=== PATIENT | female | born 1955 | race Caucasian/White ===

== ENCOUNTER 2018-02-10 11:46 | Inpatient (IN) | payer MEDICARE, OTHER ==
[~2018-02-10] VITALS: Ht 170.2 cm; Wt 62.0 kg
[~2018-02-10 11:46] MED LIST: ASPI-1264 PO; BENZ-16 PO; CARI350T PO; CYCL-1 PO; DESV50TA3 PO; ESTR1TAB19 PO; HYDR2TAB7 PO; METO-292 PO; METO25TA6 PO; NAPR250T4 PO; OMEP20CA4 PO; PRAV40TA PO
[2018-02-10 12:10] LABS: BASOPHILS % (AUTO) 0.5 % (0-1); EOSINOPHILS # (AUTO) 0.1 X10'3 (0-0.9); EOSINOPHILS % (AUTO) 0.9 % (0-6); HEMATOCRIT 37.4 % (35.0-45.0); LYMPHOCYTES # (AUTO) 1.3 X10'3 (1.1-4.8); LYMPHOCYTES % (AUTO) 12.5 % (21-51); MEAN CORPUSCULAR HEMOGLOBIN 32.6 PG (27.0-31.0); MEAN CORPUSCULAR HGB CONC 34.8 % (33.0-36.5); MEAN CORPUSCULAR VOLUME 93.9 FL (78-98); MEAN PLATELET VOLUME 6.9 FL (7.4-10.4); MONOCYTES # (AUTO) 0.8 X10'3 (0-0.9); MONOCYTES % (AUTO) 7.9 % (2-12); NEUTROPHILS % (AUTO) 78.2 % (42-75); PLATELET COUNT 443 X10'3 (140-440); RED BLOOD COUNT 3.98 X10'6 (4.20-5.60); RED CELL DISTRIBUTION WIDTH 13.2 % (11.5-14.5); WHITE BLOOD COUNT 10.2 X10'3 (4.5-11.0)
[2018-02-10 12:25] LABS: ALANINE AMINOTRANSFERASE 26 U/L (12-78); ALBUMIN 3.2 G/DL (3.4-5.0); ALBUMIN/GLOBULIN RATIO 0.7 (1.1-1.5); ALKALINE PHOSPHATASE 109 IU/L (46-116); ANION GAP 12 (8-16); ASPARTATE AMINO TRANSFERASE 20 U/L (10-37); BILIRUBIN,TOTAL 0.3 MG/DL (0.1-1.0); BLOOD UREA NITROGEN 13 MG/DL (7-18); BUN/CREATININE RATIO 14.8 (6.6-38.0); CALCIUM 9.7 MG/DL (8.5-10.1); CHLORIDE 100 MMOL/L (99-107); CREATININE 0.88 MG/DL (0.40-0.90); GLUCOSE 126 MG/DL (70-104); POTASSIUM 3.9 MMOL/L (3.5-5.1); SODIUM 138 MMOL/L (135-145); TOTAL CARBON DIOXIDE 25.7 MMOL/L (24-32); TOTAL PROTEIN 7.9 G/DL (6.4-8.2); eGFR 66 ML/MIN
[2018-02-10] MEDS ORDERED: normal saline 1000ML IV soln IVB ONE (13:00)
[2018-02-10] MEDS ORDERED: levoFLOXACIN-Levaquin 750MG/D5 150 ML IV STA (13:00)
[2018-02-10] MEDS ORDERED: oxyCODONE/APAP 10/325mg tablet PO ONE (13:10)
[2018-02-10 13:30] LABS: D-DIMER 1.22 MG/L FEU (0-0.50)
[2018-02-10] MEDS ORDERED: azithromycin/NS 500mg/250ml 250 ML IV ONE (13:50)
[2018-02-10] MEDS ORDERED: CefTRIAXone 2gm/D5W 50ml 50 ML IV ONE (13:50)
[2018-02-10] MEDS ORDERED: iohexol 350MG/ML 100ml bottle IV ONE (14:02)
[2018-02-10] MEDS ORDERED: magnesium hydroxide 30ml (MOM) UD suspension PO PRN (15:00)
[2018-02-10] MEDS ORDERED: mag hydrox/Alum hydrox/simeth 30ml oral suspension PO PRN (15:00)
[2018-02-10] MEDS ORDERED: acetaminophen 325mg tablet PO PRN (15:00)
[2018-02-10] MEDS ORDERED: HYDR-3965 PO (15:34)
[2018-02-10] MEDS: normal saline 1000ml 1,000 ML IV SCH ×2 (15:53→20:54)
[2018-02-10] MEDS ORDERED: benzonatate 100mg capsule PO SCH (16:24)
[2018-02-10 18:16] LABS: CLARITY,URINE CLEAR (Clear); COLOR,URINE STRAW (Yellow); GLUCOSE, URINE NEGATIVE (Neg); KETONES,URINE NEGATIVE (Neg); LEUKOCYTE ESTERASE ,URINE NEGATIVE (Neg); NITRITES, URINE NEGATIVE (Neg); OCCULT BLOOD,URINE MODERATE (Neg); PH,URINE 6.5 (4.8-8.0); PROTEIN,URINE NEGATIVE (Neg); UROBILINOGEN,URINE 0.2 E.U/dL (0.2-1.0)
[2018-02-10] MEDS ORDERED: oxyCODONE/APAP 5-325mg tablet PO PRN (18:20)
[2018-02-10 18:29] LABS: UA COLLECTION TYPE VOIDED
[2018-02-10 18:30] LABS: BACTERIA,URINE FEW /HPF (Neg); SQUAMOUS EPITHELIAL CELL,UR FEW /LPF (FEW); WBC,URINE 0-4 /HPF (0-4)
[2018-02-10] MEDS: ipratropium 0.5 MG/2.5ML nebule IH SCH ×2 (18:46→23:11)
[2018-02-10] MEDS: metoclopramide 10mg tablet PO PRN (19:35)
[2018-02-10 20:00] VITALS: BP 150/80
[2018-02-10] MEDS ORDERED: benzonatate 100mg capsule PO ONE (20:00)
[2018-02-10] MEDS: methylPREDNISolone sod succ/PF 40mg inj. IV SCH (20:52)
[2018-02-10] MEDS: clindamycin 600mg/D5W 50ml 50 ML IV SCH (20:52)
[2018-02-10] MEDS: heparin, porcine 5000 units/ml vial SQ SCH (20:53)
[2018-02-10] MEDS: HYDROmorphone 2mg tablet PO PRN (21:37)
[2018-02-10] MEDS ORDERED: ASPI-1264 PO (21:49)
[2018-02-10] MEDS ORDERED: ASPI-1265 PO (21:56)
[2018-02-10] MEDS ORDERED: CLON-529 PO (22:03)
[2018-02-10] MEDS ORDERED: LORA10TA7 PO (22:03)
[2018-02-10] MEDS ORDERED: BUPR150T8 PO (22:03)
[2018-02-10] MEDS ORDERED: OXYC-150 PO (22:03)
[2018-02-10] MEDS ORDERED: BACL10TA PO (22:03)
[2018-02-10 23:00] VITALS: BP 151/73
[2018-02-10] MEDS: oxyCODONE/APAP 10/325mg tablet PO PRN (23:33)
[2018-02-11] MEDS: HYDROmorphone 2mg tablet PO PRN ×6 (01:50→21:56)
[2018-02-11] MEDS: clindamycin 600mg/D5W 50ml 50 ML IV SCH ×4 (02:01→21:12)
[2018-02-11 02:31] LABS: BASOPHILS % (AUTO) 0.2 % (0-1); EOSINOPHILS # (AUTO) 0.1 X10'3 (0-0.9); EOSINOPHILS % (AUTO) 1.4 % (0-6); HEMATOCRIT 33.4 % (35.0-45.0); HEMOGLOBIN 11.5 g/dl (12.0-16.0); LYMPHOCYTES # (AUTO) 0.5 X10'3 (1.1-4.8); LYMPHOCYTES % (AUTO) 5.1 % (21-51); MEAN CORPUSCULAR HEMOGLOBIN 32.6 PG (27.0-31.0); MEAN CORPUSCULAR HGB CONC 34.4 % (33.0-36.5); MEAN CORPUSCULAR VOLUME 94.5 FL (78-98); MEAN PLATELET VOLUME 7.5 FL (7.4-10.4); MONOCYTES # (AUTO) 0.1 X10'3 (0-0.9); MONOCYTES % (AUTO) 1.3 % (2-12); NEUTROPHILS # (AUTO) 9.1 X10'3 (1.8-7.7); PLATELET COUNT 322 X10'3 (140-440); RED BLOOD COUNT 3.54 X10'6 (4.20-5.60); RED CELL DISTRIBUTION WIDTH 13.2 % (11.5-14.5); WHITE BLOOD COUNT 9.9 X10'3 (4.5-11.0)
[2018-02-11 02:48] LABS: ALBUMIN 2.6 G/DL (3.4-5.0); ANION GAP 9 (8-16); BLOOD UREA NITROGEN 10 MG/DL (7-18); BUN/CREATININE RATIO 13.3 (6.6-38.0); CALCIUM 8.9 MG/DL (8.5-10.1); CHLORIDE 104 MMOL/L (99-107); CREATININE 0.75 MG/DL (0.40-0.90); GLUCOSE 135 MG/DL (70-104); POTASSIUM 4.1 MMOL/L (3.5-5.1); SODIUM 139 MMOL/L (135-145); TOTAL CARBON DIOXIDE 26.2 MMOL/L (24-32); eGFR 79 ML/MIN
[2018-02-11] MEDS: ipratropium 0.5 MG/2.5ML nebule IH SCH ×6 (03:01→23:10)
[2018-02-11] MEDS: oxyCODONE/APAP 10/325mg tablet PO PRN ×5 (03:33→21:56)
[2018-02-11] MEDS ORDERED: zolpidem 5mg tablet PO PRN (04:10)
[2018-02-11] MEDS: ondansetron/PF 4mg/2ml inj IV PRN ×2 (04:56→16:03)
[2018-02-11] MEDS ORDERED: temazepam 15mg capsule PO PRN (05:00)
[2018-02-11 07:00] VITALS: BP 129/61
[2018-02-11] MEDS: normal saline 1000ml 1,000 ML IV SCH (07:48)
[2018-02-11] MEDS: heparin, porcine 5000 units/ml vial SQ SCH ×2 (07:49→21:10)
[2018-02-11] MEDS: methylPREDNISolone sod succ/PF 40mg inj. IV SCH ×2 (07:49→21:11)
[2018-02-11] MEDS ORDERED: levoFLOXACIN-Levaquin 750MG/D5 150 ML IV SCH (08:00)
[2018-02-11] MEDS: metoclopramide 10mg tablet PO PRN (08:03)
[2018-02-11] MEDS: benzonatate 100mg capsule PO PRN (08:03)
[2018-02-11] MEDS: nicotine 21mg patch - 24 hr TD SCH (14:10)
[2018-02-11] MEDS: baclofen 10mg tablet PO SCH ×2 (16:03→23:24)
[2018-02-11] MEDS ORDERED: LORazepam 2 mg/ml vial IV ONE (17:15)
[2018-02-11] MEDS ORDERED: ALPRAZolam 0.25mg tablet PO PRN (17:15)
[2018-02-11] MEDS: ALPRAZolam 0.25mg tablet PO PRN (17:36)
[2018-02-11] MEDS ORDERED: iohexol 300mg/ml 100ml inj. ONE (19:27)
[2018-02-11 20:00] VITALS: BP 127/66
[2018-02-11] MEDS: cloNIDine 0.1 mg tablet PO SCH (21:16)
[2018-02-11 23:00] VITALS: BP 120/69
[2018-02-12] MEDS: HYDROmorphone 2mg tablet PO PRN ×3 (01:36→11:00)
[2018-02-12] MEDS: clindamycin 600mg/D5W 50ml 50 ML IV SCH ×3 (01:37→13:24)
[2018-02-12] MEDS: oxyCODONE/APAP 10/325mg tablet PO PRN ×3 (02:16→13:34)
[2018-02-12] MEDS: ipratropium 0.5 MG/2.5ML nebule IH SCH ×4 (02:59→16:12)
[2018-02-12] MEDS ORDERED: bisacodyl 10mg suppository rectal RC PRN (05:25)
[2018-02-12 05:29] LABS: BASOPHILS % (AUTO) 0 % (0-1); EOSINOPHILS # (AUTO) 0.1 X10'3 (0-0.9); EOSINOPHILS % (AUTO) 0.7 % (0-6); HEMATOCRIT 32.2 % (35.0-45.0); HEMOGLOBIN 11.1 g/dl (12.0-16.0); LYMPHOCYTES # (AUTO) 0.6 X10'3 (1.1-4.8); LYMPHOCYTES % (AUTO) 5.2 % (21-51); MEAN CORPUSCULAR HEMOGLOBIN 32.6 PG (27.0-31.0); MEAN CORPUSCULAR HGB CONC 34.6 % (33.0-36.5); MEAN CORPUSCULAR VOLUME 94.3 FL (78-98); MEAN PLATELET VOLUME 7.2 FL (7.4-10.4); MONOCYTES # (AUTO) 0.3 X10'3 (0-0.9); MONOCYTES % (AUTO) 2.6 % (2-12); NEUTROPHILS # (AUTO) 10.7 X10'3 (1.8-7.7); NEUTROPHILS % (AUTO) 91.5 % (42-75); PLATELET COUNT 342 X10'3 (140-440); RED BLOOD COUNT 3.42 X10'6 (4.20-5.60); RED CELL DISTRIBUTION WIDTH 12.8 % (11.5-14.5); WHITE BLOOD COUNT 11.7 X10'3 (4.5-11.0)
[2018-02-12 05:57] LABS: ALBUMIN 2.6 G/DL (3.4-5.0); ANION GAP 8 (8-16); BLOOD UREA NITROGEN 12 MG/DL (7-18); BUN/CREATININE RATIO 17.1 (6.6-38.0); CALCIUM 9.2 MG/DL (8.5-10.1); CHLORIDE 103 MMOL/L (99-107); GLUCOSE 130 MG/DL (70-104); POTASSIUM 4.3 MMOL/L (3.5-5.1); SODIUM 138 MMOL/L (135-145); TOTAL CARBON DIOXIDE 27.5 MMOL/L (24-32); eGFR 85 ML/MIN
[2018-02-12] MEDS ORDERED: pantoprazole 40mg Tablet.DR PO SCH (07:30)
[2018-02-12 08:00] VITALS: BP 118/69
[2018-02-12] MEDS ORDERED: loratadine 10mg tablet PO SCH (08:00)
[2018-02-12] MEDS ORDERED: estradiol 1mg tablet PO SCH (08:00)
[2018-02-12] MEDS: cloNIDine 0.1 mg tablet PO SCH (08:00)
[2018-02-12] MEDS ORDERED: buPROPion SR 100mg tab PO SCH (08:00)
[2018-02-12] MEDS ORDERED: atorvastatin 10mg tablet PO SCH (08:00)
[2018-02-12] MEDS ORDERED: aspirin 81mg tab.chew PO SCH (08:00)
[2018-02-12] MEDS: baclofen 10mg tablet PO SCH (08:12)
[2018-02-12] MEDS: methylPREDNISolone sod succ/PF 40mg inj. IV SCH (08:13)
[2018-02-12] MEDS: LACTOSE-FREE FOOD 237ML (BOOST) PO SCH ×2 (08:13→13:19)
[2018-02-12] MEDS: nicotine 21mg patch - 24 hr TD SCH (08:15)
[2018-02-12] MEDS: heparin, porcine 5000 units/ml vial SQ SCH (08:16)
[2018-02-12] MEDS: benzonatate 100mg capsule PO PRN (08:21)
[2018-02-12] MEDS: ALPRAZolam 0.25mg tablet PO PRN (10:56)
[2018-02-12] MEDS: ondansetron/PF 4mg/2ml inj IV PRN (10:56)
[2018-02-12 12:00] VITALS: BP 114/58
[2018-02-12] MEDS ORDERED: AMOX-580 PO (12:05)
[2018-02-12] MEDS ORDERED: NICO-687 TD (12:05)
[2018-02-12] MEDS ORDERED: CLIN-5 PO (12:05)
[2018-02-12] MEDS ORDERED: ALBU8.5H8 INH (12:24)
[2018-02-12] MEDS ORDERED: NEBU-184 (12:24)
[2018-02-12] MEDS ORDERED: IPRA3AMP IH (12:24)
[2018-02-12] MEDS ORDERED: lactobacillus rhamnosus 10,000 MMU CELLS/CAPSULE PO SCH (20:00)
== END 2018-02-12 16:30 | disposition home or self-care (01) | DRG 180 ==
LOC: ER 11:47 → ED HOLD 14:56 → EDBEDREQ 16:48 → MED 3N 17:58
PROVIDERS: ADMIT Family Medicine; ATTEND Family Medicine
PROC: B3201ZZ Computerized Tomography (CT Scan) of Thoracic Aorta using Low Osmolar Contrast (ICD-10-PCS; principal; 2018-02-10)
PROC: CP2YYZZ Tomographic (Tomo) Nuclear Medicine Imaging of Musculoskeletal System, Other using Other Radionuclide (ICD-10-PCS; 2018-02-11)
DX: C34.91 Malignant neoplasm of unspecified part of right bronchus or lung (principal); J18.8 Other pneumonia, unspecified organism; E78.00 Pure hypercholesterolemia, unspecified; I25.10 Atherosclerotic heart disease of native coronary artery without angina pectoris; R09.02 Hypoxemia; M54.9 Dorsalgia, unspecified; F17.210 Nicotine dependence, cigarettes, uncomplicated; G89.29 Other chronic pain; I25.2 Old myocardial infarction; Z82.49 Family history of ischemic heart disease and other diseases of the circulatory system; Z90.710 Acquired absence of both cervix and uterus; Z88.2 Allergy status to sulfonamides; Z88.5 Allergy status to narcotic agent; Z90.49 Acquired absence of other specified parts of digestive tract; Z79.899 Other long term (current) drug therapy; Z79.82 Long term (current) use of aspirin
CPT/HCPCS: 36415; 70470; 71046; 71275; 76775; 78306; 80048; 80053; 81001; 83605; 84145; 84484; 85025; 85379; 87040; 87070; 93005; 93306; 94640; 94760; A9503; J0456; J0696; J1644; J1956; J2405; J2920; J3490; J7030; J8597; Q9967

== ENCOUNTER 2018-04-01 19:39 | Inpatient (IN) | payer MEDICARE, OTHER ==
[~2018-04-01] VITALS: Ht 167.6 cm; Wt 58.8 kg
[~2018-04-01 19:39] MED LIST changes: +ALBU8.5H8 INH; -ASPI-1264 PO; +ASPI-1265 PO; +BACL10TA PO; -BENZ-16 PO; +BUPR150T8 PO; -CARI350T PO; +CLIN-5 PO; +CLON-529 PO; -CYCL-1 PO; -DESV50TA3 PO; +IPRA3AMP IH; +LORA10TA7 PO; -METO25TA6 PO; -NAPR250T4 PO; +NEBU-184; +NICO-687 TD; +OXYC-150 PO
[2018-04-01] MEDS ORDERED: ipratropium/albuterol 3ml nebule NEB ONE (20:30)
[2018-04-01] MEDS ORDERED: dexamethasone sod phosphate 10mg/ml inj IV STA (20:30)
[2018-04-01 20:38] LABS: BASOPHILS % (AUTO) 0.1 % (0-1); EOSINOPHILS % (AUTO) 0.1 % (0-6); HEMATOCRIT 33.5 % (35.0-45.0); HEMOGLOBIN 11.4 g/dl (12.0-16.0); LYMPHOCYTES # (AUTO) 0.4 X10'3 (1.1-4.8); LYMPHOCYTES % (AUTO) 4.2 % (21-51); MEAN CORPUSCULAR HEMOGLOBIN 30.3 PG (27.0-31.0); MEAN CORPUSCULAR HGB CONC 34.1 % (33.0-36.5); MEAN CORPUSCULAR VOLUME 88.9 FL (78-98); MEAN PLATELET VOLUME 6.7 FL (7.4-10.4); MONOCYTES # (AUTO) 0.3 X10'3 (0-0.9); MONOCYTES % (AUTO) 3.6 % (2-12); NEUTROPHILS # (AUTO) 8.7 X10'3 (1.8-7.7); PLATELET COUNT 240 X10'3 (140-440); RED BLOOD COUNT 3.77 X10'6 (4.20-5.60); RED CELL DISTRIBUTION WIDTH 13.9 % (11.5-14.5); WHITE BLOOD COUNT 9.5 X10'3 (4.5-11.0)
[2018-04-01] MEDS ORDERED: piperacillin/tazo 3.375gm/50ml 50 ML IV ONE (20:40)
[2018-04-01] MEDS ORDERED: vancomycin/NS 1 GM ADD-VANTAGE 250 ML IV ONE (20:40)
[2018-04-01 20:53] LABS: ALANINE AMINOTRANSFERASE 19 U/L (12-78); ALBUMIN 2.4 G/DL (3.4-5.0); ALBUMIN/GLOBULIN RATIO 0.5 (1.1-1.5); ALKALINE PHOSPHATASE 86 IU/L (46-116); ANION GAP 14 (8-16); ASPARTATE AMINO TRANSFERASE 17 U/L (10-37); BILIRUBIN,TOTAL 0.3 MG/DL (0.1-1.0); BLOOD UREA NITROGEN 14 MG/DL (7-18); BUN/CREATININE RATIO 16.9 (6.6-38.0); CALCIUM 8.9 MG/DL (8.5-10.1); CHLORIDE 98 MMOL/L (99-107); CREATININE 0.83 MG/DL (0.40-0.90); GLUCOSE 124 MG/DL (70-104); POTASSIUM 3.8 MMOL/L (3.5-5.1); SODIUM 135 MMOL/L (135-145); TOTAL PROTEIN 7.2 G/DL (6.4-8.2); eGFR 70 ML/MIN
[2018-04-01] MEDS ORDERED: fentaNYL/PF 50MCG/1 ML 2ML syringe IV ONE (21:25)
[2018-04-01] MEDS ORDERED: ondansetron/PF 4mg/2ml inj IV ONE (21:25)
[2018-04-01] MEDS ORDERED: CLON-528 PO (22:24)
[2018-04-01] MEDS ORDERED: DEC1T PO (22:24)
[2018-04-01] MEDS ORDERED: AZIT-63 PO (22:24)
[2018-04-01] MEDS ORDERED: BENZ-16 PO (22:24)
[2018-04-01] MEDS ORDERED: SUCR1ORA2 PO (22:25)
[2018-04-01] MEDS ORDERED: acetaminophen 325mg tablet PO PRN (22:55)
[2018-04-01] MEDS ORDERED: magnesium hydroxide 30ml (MOM) UD suspension PO PRN (22:55)
[2018-04-01] MEDS ORDERED: bisacodyl 10mg suppository rectal RC PRN (22:55)
[2018-04-01] MEDS ORDERED: mag hydrox/Alum hydrox/simeth 30ml oral suspension PO PRN (22:55)
[2018-04-01] MEDS ORDERED: HYDROmorphone 2mg/ml vial IV PRN (23:00)
[2018-04-02] MEDS: piperacillin/tazo 3.375gm/50ml 50 ML IV SCH ×3 (00:35→09:16)
[2018-04-02] MEDS ORDERED: clonazePAM 0.5mg tablet PO PRN (01:50)
[2018-04-02] MEDS ORDERED: benzonatate 100mg capsule PO PRN (01:50)
[2018-04-02] MEDS ORDERED: HYDROmorphone inj. 0.5 MG/0.5 ML DISP.SYRIN IV PRN (03:00)
[2018-04-02] MEDS ORDERED: HYDROmorphone 1 mg/ml syringe ONE ×2 (04:25→09:37)
[2018-04-02 07:03] LABS: BASOPHILS % (AUTO) 0 % (0-1); EOSINOPHILS # (AUTO) 0.1 X10'3 (0-0.9); EOSINOPHILS % (AUTO) 1.5 % (0-6); HEMATOCRIT 29.3 % (35.0-45.0); HEMOGLOBIN 9.9 g/dl (12.0-16.0); LYMPHOCYTES # (AUTO) 0.2 X10'3 (1.1-4.8); LYMPHOCYTES % (AUTO) 3.1 % (21-51); MEAN CORPUSCULAR HEMOGLOBIN 29.8 PG (27.0-31.0); MEAN CORPUSCULAR HGB CONC 33.7 % (33.0-36.5); MEAN CORPUSCULAR VOLUME 88.2 FL (78-98); MEAN PLATELET VOLUME 6.6 FL (7.4-10.4); MONOCYTES # (AUTO) 0.1 X10'3 (0-0.9); MONOCYTES % (AUTO) 1.4 % (2-12); PLATELET COUNT 194 X10'3 (140-440); RED BLOOD COUNT 3.32 X10'6 (4.20-5.60); WHITE BLOOD COUNT 5.3 X10'3 (4.5-11.0)
[2018-04-02 07:20] LABS: ALBUMIN 2.1 G/DL (3.4-5.0); ANION GAP 9 (8-16); BLOOD UREA NITROGEN 13 MG/DL (7-18); BUN/CREATININE RATIO 16.7 (6.6-38.0); CALCIUM 9.1 MG/DL (8.5-10.1); CHLORIDE 101 MMOL/L (99-107); CREATININE 0.78 MG/DL (0.40-0.90); GLUCOSE 132 MG/DL (70-104); MAGNESIUM 2.1 MG/DL (1.5-2.4); PHOSPHORUS 4.5 MG/DL (2.3-4.5); POTASSIUM 4.3 MMOL/L (3.5-5.1); SODIUM 137 MMOL/L (135-145); TOTAL CARBON DIOXIDE 26.6 MMOL/L (24-32); eGFR 75 ML/MIN
[2018-04-02] MEDS ORDERED: baclofen 10mg tablet PO PRN (08:00)
[2018-04-02 08:45] VITALS: BP 95/64
[2018-04-02] MEDS: loratadine 10mg tablet PO SCH (09:15)
[2018-04-02] MEDS: cloNIDine 0.1 mg tablet PO SCH ×2 (09:15→20:00)
[2018-04-02] MEDS: lactobacillus rhamnosus 10,000 MMU CELLS/CAPSULE PO SCH ×2 (09:16→20:52)
[2018-04-02] MEDS: buPROPion SR 150mg tablet PO SCH ×2 (09:16→20:53)
[2018-04-02] MEDS: pantoprazole 40mg Tablet.DR PO SCH (09:19)
[2018-04-02] MEDS: enoxaparin 40mg/0.4ml syringe SUBCUT SCH (09:24)
[2018-04-02] MEDS: ondansetron/PF 4mg/2ml inj IV PRN ×2 (10:57→18:40)
[2018-04-02 11:00] VITALS: BP 82/47
[2018-04-02] MEDS: dexamethasone 1mg tablet PO SCH ×2 (11:04→20:53)
[2018-04-02] MEDS: vancomycin inj. 750 MG in normal saline 250ml IV soln 250 ML IV SCH ×2 (11:04→21:27)
[2018-04-02] MEDS: estradiol 1mg tablet PO SCH (11:04)
[2018-04-02] MEDS ORDERED: ONDA4TAB9 PO (12:05)
[2018-04-02] MEDS: HYDROmorphone 1 mg/ml syringe IV PRN ×3 (13:39→22:39)
[2018-04-02 20:00] VITALS: BP 91/66
[2018-04-02] MEDS ORDERED: pravastatin 40mg tablet PO SCH (21:00)
[2018-04-03] VITALS: BP 90/56
[2018-04-03] MEDS: piperacillin/tazo 3.375gm/50ml 50 ML IV SCH ×2 (00:14→07:17)
[2018-04-03] MEDS: HYDROmorphone 1 mg/ml syringe IV PRN ×3 (02:41→12:04)
[2018-04-03] MEDS: ondansetron/PF 4mg/2ml inj IV PRN ×2 (06:29→12:59)
[2018-04-03 07:11] LABS: BASOPHILS % (AUTO) 0.4 % (0-1); EOSINOPHILS # (AUTO) 0.1 X10'3 (0-0.9); EOSINOPHILS % (AUTO) 1.3 % (0-6); HEMATOCRIT 27.5 % (35.0-45.0); HEMOGLOBIN 9.1 g/dl (12.0-16.0); LYMPHOCYTES # (AUTO) 0.4 X10'3 (1.1-4.8); LYMPHOCYTES % (AUTO) 7.6 % (21-51); MEAN CORPUSCULAR HEMOGLOBIN 29.5 PG (27.0-31.0); MEAN CORPUSCULAR VOLUME 89.5 FL (78-98); MEAN PLATELET VOLUME 6.8 FL (7.4-10.4); MONOCYTES # (AUTO) 0.3 X10'3 (0-0.9); MONOCYTES % (AUTO) 6.3 % (2-12); NEUTROPHILS % (AUTO) 84.4 % (42-75); PLATELET COUNT 199 X10'3 (140-440); RED BLOOD COUNT 3.08 X10'6 (4.20-5.60); WHITE BLOOD COUNT 4.8 X10'3 (4.5-11.0)
[2018-04-03] MEDS: estradiol 1mg tablet PO SCH (07:17)
[2018-04-03] MEDS: loratadine 10mg tablet PO SCH (07:17)
[2018-04-03] MEDS: lactobacillus rhamnosus 10,000 MMU CELLS/CAPSULE PO SCH (07:17)
[2018-04-03] MEDS: pantoprazole 40mg Tablet.DR PO SCH (07:17)
[2018-04-03] MEDS: dexamethasone 1mg tablet PO SCH (07:18)
[2018-04-03] MEDS: buPROPion SR 150mg tablet PO SCH (07:18)
[2018-04-03] MEDS: enoxaparin 40mg/0.4ml syringe SUBCUT SCH (07:18)
[2018-04-03 07:24] LABS: ALBUMIN 1.9 G/DL (3.4-5.0); ANION GAP 10 (8-16); BLOOD UREA NITROGEN 16 MG/DL (7-18); BUN/CREATININE RATIO 26.7 (6.6-38.0); CALCIUM 8.8 MG/DL (8.5-10.1); CHLORIDE 104 MMOL/L (99-107); GLUCOSE 103 MG/DL (70-104); MAGNESIUM 1.7 MG/DL (1.5-2.4); PHOSPHORUS 3.1 MG/DL (2.3-4.5); POTASSIUM 3.7 MMOL/L (3.5-5.1); SODIUM 138 MMOL/L (135-145); TOTAL CARBON DIOXIDE 24.1 MMOL/L (24-32); eGFR > 90 ML/MIN
[2018-04-03] MEDS: cloNIDine 0.1 mg tablet PO SCH (07:31)
[2018-04-03] MEDS: heparin sodium, porcine/PF 100unit/ml 5ML syringe IV SCH ×3 (07:34→13:05)
[2018-04-03 08:01] VITALS: BP 94/47
[2018-04-03] MEDS: vancomycin inj. 750 MG in normal saline 250ml IV soln 250 ML IV SCH (10:19)
[2018-04-03 11:00] VITALS: BP 95/57
[2018-04-03] MEDS ORDERED: LEVO500T2 PO (12:42)
[2018-04-03] MEDS ORDERED: VANCOMYCIN LEVEL IV ONE (21:30)
== END 2018-04-03 14:06 | disposition home or self-care (01) | DRG 202 ==
LOC: ER 19:39 → ED HOLD 22:54 → SUR 3N 04-02 07:50
PROVIDERS: ADMIT Emergency Medicine; ATTEND Emergency Medicine
DX: J40 Bronchitis, not specified as acute or chronic (principal); C34.90 Malignant neoplasm of unspecified part of unspecified bronchus or lung; G90.50 Complex regional pain syndrome I, unspecified; C79.31 Secondary malignant neoplasm of brain; E44.1 Mild protein-calorie malnutrition; R11.2 Nausea with vomiting, unspecified; D64.9 Anemia, unspecified; E78.00 Pure hypercholesterolemia, unspecified; E78.5 Hyperlipidemia, unspecified; G89.29 Other chronic pain; M54.9 Dorsalgia, unspecified; I25.10 Atherosclerotic heart disease of native coronary artery without angina pectoris; F17.200 Nicotine dependence, unspecified, uncomplicated; T45.1X5A Adverse effect of antineoplastic and immunosuppressive drugs, initial encounter; Z88.2 Allergy status to sulfonamides; Z88.1 Allergy status to other antibiotic agents; Z88.6 Allergy status to analgesic agent; I25.2 Old myocardial infarction; Z90.49 Acquired absence of other specified parts of digestive tract; Z90.710 Acquired absence of both cervix and uterus; Z85.3 Personal history of malignant neoplasm of breast; Z82.49 Family history of ischemic heart disease and other diseases of the circulatory system; Z68.20 Body mass index [BMI] 20.0-20.9, adult
CPT/HCPCS: 36415; 71046; 80048; 80053; 83605; 83735; 84100; 84145; 85025; 87040; 87070; 94640; 94760; 96365; 96366; 96368; 99285; A6257; J1100; J1170; J1642; J1650; J2405; J2543; J3010; J3370; J7030; J8540